=== PATIENT | female | born 1985 | race Caucasian/White ===

== ENCOUNTER 2021-06-11 15:54 | Inpatient (IN) | payer BC ==
[2021-06-11 17:30] LABS: Absolute Lymphocytes (CBC) 0.7 K/uL (0.7-4.9); Basophils % 0.4 % (0-1.3); Hematocrit 43.5 % (36.0-45.0); Lymphocytes % 10.1 % (15.3-44.8); MPV 8.1 fL (7.6-11.3); RBC Red Blood Cell Count 5.14 M/uL (3.86-4.86)
[2021-06-11 17:34] LABS: Protime INR 1.32
--- NOTE | 2021-06-11 17:45 | RAD REPORT ---
EXAM DESCRIPTION: RAD - Chest Single View - 06/11/2021 5:37 pm CLINICAL HISTORY: DYSPNEA COMPARISON: No comparisons FINDINGS: Lines: None. Lungs: Severe bilateral airspace disease. Pleural: No significant pleural effusions or pneumothorax. Cardiac: The heart size is within normal limits. Bones: No acute fractures. Other: IMPRESSION: Severe bilateral airspace disease concerning for multifocal pneumonia, particularly Covi d-19 .
[2021-06-11] MEDS ORDERED: NA CHLORIDE 0.9% 1,000 ML ONE (18:00)
[2021-06-11] MEDS ORDERED: METHYLPREDNISOLONE 125 MG INJ ONE (18:00)
[2021-06-11 18:06] LABS: ALT/SGPT 21 U/L (12-78); AST/SGOT 37 U/L (15-37); Albumin 2.8 g/dL (3.4-5.0); Alkaline Phosphatase 73 U/L (45-117); BUN Blood Urea Nitrogen 15 mg/dL (7-18); Bicarbonate 24 mmol/L (21-32); Bilirubin Direct 0.2 mg/dL (0-0.2); Bilirubin Total 0.6 mg/dL (0.2-1.0); Ferritin 607.6 ng/mL (8-388); Glucose Level 288 mg/dL (74-106); Lipase 170 U/L (73-393); Potassium 3.6 mmol/L (3.5-5.1); Protein, Total 7.5 g/dL (6.4-8.2); Sodium Level 139 mmol/L (136-145); Troponin (Emerg Dept Use Only) < 0.02 ng/mL (0.0-0.045)
[2021-06-11 18:38] LABS: Blood Morphology Comment NOT SEEN (NOT SEEN); Platelet Estimate ADEQ; White Blood Cell Scan OK (OK)
--- NOTE | 2021-06-11 19:09 | RAD REPORT ---
EXAM DESCRIPTION: CT - Chest For Pe Angio - 06/11/2021 6:52 pm CLINICAL HISTORY: SOB COMPARISON: No comparisons FINDINGS: Chest Wall: No suspicious thyroid nodules or pathologic lymphadenopathy. Lungs: Severe bilateral airspace disease. Pleura: No significant effusions or pneumothorax. Mediastinum/kay: No pathologic lymphadenopathy. Pulmonary arteries/Aorta: No filling defect identified. Limited evaluation of the subsegmental and se gmental pulmonary arteries. No aortic aneurysm. Heart: No significant pericardial effusion. Normal heart size. Upper abdomen: Hepatic steatosis Bones: No acute abnormality. All CT scans are performed using dose optimization technique as appropriate and may include automated exposure control or mA/KV adjustment according to patient size. IMPRESSION: Negative for pulmonary embolism. Limited by motion. Severe bilateral airspace disease co ncerning for Covid-19 pneumonia.
[2021-06-11 19:17] LABS: Urine Blood 2+ (Negative); Urine Glucose 2+ (Negative); Urine Protein 1+ (Negative); Urine Specific Gravity 1.015 (1.005-1.030); Urine pH 5.5 (5.0-7.0)
[2021-06-11] MEDS ORDERED: CEFTRIAXONE 1000 MG/VIAL ONE (19:17)
[2021-06-11] MEDS ORDERED: HYDRALAZINE HCL 20 MG/ML VIAL ONE (19:17)
[2021-06-11 19:36] LABS: Urine Specific Gravity/Preg 1.015 (1.005-1.030)
--- NOTE | 2021-06-11 19:48 | ER ---
Nurse's Notes [facility] Name: Rachael Couch Age: 35 yrs Sex: Female : 1985 Arrival Date: 06/11/2021 Time: 16:25 Bed 19 Private MD: Diagnosis: Pneumonia due to SARS-associated coronavirus;Hypoxemia Presentation: 06/11 16:30 Chief complaint: Patient states: increased SOB since 06/05/21, CP 10/10, positive covid tc5 06/04/21, other in home have recently had covid. went to doctor today, 02 sats decreased to the 70's with ambulation on 2 LPM NC, would recover to the 80's. EMS called to bring her to the er. Coronavirus screen: Vaccine status: Patient reports being unvaccinated. Client denies travel out of the [place] in the last 14 days. Client reports previous positive COVID test result. Date of collection: June 04, 2021. Ebola Screen: Patient negative for fever greater than or equal to 101.5 degrees Fahrenheit, and additional compatible Ebola Virus Disease symptoms Patient denies exposure to infectious person. Patient denies travel to an Ebola-affected area in the 21 days before illness onset. Initial Sepsis Screen: Does the patient meet any 2 criteria? RR > 20 per min. Does the patient have a suspected source of infection?. Risk Assessment: Do you want to hurt yourself or someone else? Patient reports no desire to harm self or others. Onset of symptoms was June 04, 2021 at 00:00. 16:30 Method Of Arrival: EMS: [facility] tc5 16:30 Acuity: SALVATORE 3 tc5 Triage Assessment: 16:41 General: Appears distressed, obese, Behavior is cooperative, anxious. Pain: Complains tc5 of pain in chest. Neuro: No deficits noted. Cardiovascular: Chest pain began 6 days ago with sob. Respiratory: Reports shortness of breath cough that is pain with cough covid positive 06/04/21, sob started 06/05/21 continues to worsen. the patient has moderate shortness of breath. GI: No deficits noted. : No deficits noted. Historical: - Allergies: 16:38 Aspirin; tc5 16:38 Sulfa (Sulfonamide Antibiotics); tc5 16:38 PENICILLINS; tc5 - Home Meds: 16:38 metformin 1,000 mg Oral tab 2 times per day [Active]; Invokana 100 mg oral tab 1 tab tc5 once daily [Active]; losartan 50 mg oral tab once daily [Active]; amlodipine 10 mg tab once daily [Active]; - PMHx: 16:38 Diabetes mellitus; Hypertensive disorder; Asthma; tc5 - Immunization history:: Adult Immunizations up to date, Client reports having NOT received the Covid vaccine. Last tetanus immunization: up to date. - Social history:: Patient/guardian denies using. Screenin:15 Fall Risk None identified. No fall in past 12 months (0 pts). No secondary diagnosis (0 dc2 pts). IV access (20 points). Ambulatory Aid- None/Bed Rest/Nurse Assist (0 pts). Gait- Normal/Bed Rest/Wheelchair (0 pts) Mental Status- Oriented to own ability (0 pts). Total Salas Fall Scale indicates No Risk (0-24 pts). 22:15 Abuse screen: Denies threats or abuse. Denies injuries from another. Nutritional dc2 screening: No deficits noted. On diabetic diet, Difficulty chewing/swallowing? No. Tuberculosis screening: No symptoms or risk factors identified. Never had TB. Possible symptoms: None Risk factors: None. Assessment: 16:44 General: Appears distressed, obese, Behavior is cooperative, anxious, pt is calming tc5 with reassurance and 02 sat is increasing.. Pain: Complains of pain in chest. Neuro: No deficits noted. Cardiovascular: Reports chest pain. Respiratory: Reports shortness of breath cough that is air hunger. GI: No deficits noted. : No deficits noted. 20:42 Reassessment: Lactic acid drawn and sent to lab on ice. dc2 21:42 Reassessment: Pt reports now having diarrhea. Waiting on hospitalist to make visit and dc2 will notify of this change. 23:26 Reassessment: Report given to receiving nurse on fourth floor. ea 23:35 Reassessment: Report called to receiving nurse, pt left ED via hospital bed with ea oxygen, per tech, pt tolerating well. Vital Signs: 16:30 BP 209 / 98; Pulse 92; Resp 30; Temp 98.6; Pulse Ox 94% 6 lpm ; Weight 131.54 kg; tc5 Height 5 ft. 9 in. (175.26 cm); Pain 10/10; 16:43 BP 201 / 99; Pulse 91; Resp 26; Temp 98.6; Pulse Ox 98% ; tc5 19:35 BP 183 / 98; Pulse 93; Resp 22; Temp 98.3; Pulse Ox 98% on 6 lpm NC; Pain 0/10; dc2 19:35 BP 175 / 88; Pulse 95; Resp 22; Pulse Ox 97% on 6 lpm NC; Pain 0/10; dc2 20:00 BP 188 / 89; Pulse 92; Resp 24; Pulse Ox 95% on 6 lpm NC; Pain 0/10; dc2 21:00 BP 189 / 94; Pulse 105; Resp 22; Pulse Ox 98% on 6 lpm NC; Pain 0/10; dc2 22:00 BP 162 / 82; Pulse 101; Resp 22; Pulse Ox 95% on 6 lpm NC; Pain 0/10; dc2 16:30 Body Mass Index 42.83 (131.54 kg, 175.26 cm) tc5 ED Course: 16:25 Patient arrived in ED. ap3 16:30 Yumiko Hinton, RN is Primary Nurse. tc5 16:37 Triage completed. tc5 16:45 Karel Hurst PA is PHCP. cp 16:45 James Pinedo MD is Attending Physician. cp 17:22 Inserted saline lock: 20 gauge in right antecubital area, using aseptic technique. dh4 Blood collected. 17:37 CXR XRAY In Process Unspecified. EDMS 18:52 CT Chest For PE Angio In Process Unspecified. EDMS 19:18 Report given to Kaye Burton. tc5 19:20 Patient has correct armband on for positive identification. Allergy band placed. Fall dc2 risk band placed. Bed in low position. Call light in reach. Side rails up X 1. ekg monitor on. Pulse ox on. NIBP on. Door closed. Lights dimmed. Pillow given. Verbal reassurance given. Assisted to bedside commode. 19:47 Bartolome Thomson is Hospitalizing Provider. cp 20:30 Awaiting bed assignment. Patient requests liquids. dc2 21:13 Safety Checks: The door is not opened, nor is patient placed in a hallway bed/chair. dc2 23:26 No provider procedures requiring assistance completed. Patient admitted, IV remains in ea place. Administered Medications: 17:45 Drug: SOLU-Medrol (methylPrednisoLONE) 125 mg Route: IVP; Site: right antecubital; tc5 17:46 Drug: NS 0.9% 1000 ml Route: IV; Rate: 1 bolus; Site: right antecubital; tc5 19:10 Drug: Rocephin (cefTRIAXone) 1 grams Route: IV; Rate: calculated rate; Site: right lh3 antecubital; 19:20 Drug: hydrALAZINE 10 mg Route: IVP; Site: right antecubital; lh3 22:19 Follow up: Response: Blood pressure is lowered dc2 19:44 Drug: NS 0.9% 1000 ml Route: IV; Rate: 1 bolus; Site: right antecubital; lh3 19:45 Follow up: IV Status: Completed infusion dc2 Outcome: 19:48 Decision to Hospitalize by Provider. cp 23:25 Admitted to Med/surg accompanied by tech, room 407, Report called to Receiving nurse ea on fourth floor 23:25 Condition: stable 23:25 Instructed on the need for admit, Demonstrated understanding of instructions. 23:34 Patient left the ED. ea Signatures: Dispatcher [employer] EDMS Karel Hurst PA PA cp Donna Muse RN Jenni Kruger ea RN RN [id number] Denys Aparicio [facility] Ledy Self RN RN lh3 Kaye Goznales, RN RN dc2 Yumiko Hinton RN RN tc5
--- NOTE | 2021-06-11 19:48 | EDPHYS ---
Physician Documentation [facility] Name: Rachael Couch Age: 35 yrs Sex: Female : 1985 Arrival Date: 06/11/2021 Time: 16:25 Bed 19 Private MD: ED Physician James Pinedo HPI: 06/11 16:45 This 35 yrs old Female presents to ER via EMS with complaints of Covid+ SOB. cp 16:45 The patient has shortness of breath at rest. Onset: The symptoms/episode began/occurred cp gradually, and became worse today. Duration: The symptoms are continuous, and are steadily getting worse. Associated signs and symptoms: Pertinent positives: chest pain, cough, Pertinent negatives: abdominal pain, diarrhea, fever, headache, vomiting, wheezing. 16:45 Patient reports testing positive for COVID-19 on 06-04-2021 with symptoms starting cp 06-05-2021. Patient reports she is not vaccinated against COVID-19. Historical: - Allergies: 16:38 Aspirin; tc5 16:38 Sulfa (Sulfonamide Antibiotics); tc5 16:38 PENICILLINS; tc5 - Home Meds: 16:38 metformin 1,000 mg Oral tab 2 times per day [Active]; Invokana 100 mg oral tab 1 tab tc5 once daily [Active]; losartan 50 mg oral tab once daily [Active]; amlodipine 10 mg tab once daily [Active]; - PMHx: 16:38 Diabetes mellitus; Hypertensive disorder; Asthma; tc5 - Immunization history:: Adult Immunizations up to date, Client reports having NOT received the Covid vaccine. Last tetanus immunization: up to date. - Social history:: Patient/guardian denies using. ROS: 16:50 Constitutional: Negative for fever, poor PO intake. cp 16:50 Eyes: Negative for injury, pain, redness, and discharge. cp 16:50 Cardiovascular: Positive for chest pain, Negative for edema. 16:50 Respiratory: Positive for cough, "sounds productive", shortness of breath, at rest. Negative for wheezing. 16:50 Abdomen/GI: Negative for abdominal pain, vomiting, diarrhea, constipation. 16:50 Skin: Negative for rash. 16:50 Neuro: Negative for altered mental status, headache, syncope, weakness. 16:50 All other systems are negative. Exam: 16:50 ECG was reviewed by the Attending Physician. cp 16:55 Constitutional: The patient appears alert, awake, non-diaphoretic, non-toxic, well cp developed, well nourished, obese, in obvious distress, mildly distressed. 16:55 Head/Face: Normocephalic, atraumatic. cp 16:55 Eyes: Periorbital structures: appear normal, Pupils: equal, round, and reactive to light and accomodation, Extraocular movements: intact throughout, Conjunctiva: normal, no exudate, no injection, Sclera: no appreciated abnormality, Lids and lashes: appear normal, bilaterally. 16:55 ENT: External ear(s): are unremarkable, Nose: is normal, Mouth: Lips: moist, Oral mucosa: pink and intact, moist, Posterior pharynx: Airway: no evidence of obstruction, patent, Tonsils: are normal in appearance, swelling, is not appreciated, erythema, is not appreciated, exudate, is not appreciated. 16:55 Neck: ROM/movement: is normal, is supple, no meningismus, no nuchal rigidity. 16:55 Chest/axilla: Inspection: normal. 16:55 Cardiovascular: Rate: normal, Rhythm: regular, Edema: is not appreciated, JVD: is not appreciated. 16:55 Respiratory: mild respiratory distress is noted, Respirations: labored breathing, that is moderate, shallow respirations, that is moderate, Breath sounds: bronchial sounds, that are moderate, are heard diffusely, stridor, is not appreciated, wheezing: is not appreciated. 16:55 Abdomen/GI: Inspection: obese Palpation: abdomen is soft and non-tender, in all quadrants. 16:55 Skin: cellulitis, is not appreciated, no rash present. 16:55 Neuro: Orientation: to person, place \\T\\ time. Mentation: is normal, Motor: moves all fours, strength is normal. Vital Signs: 16:30 BP 209 / 98; Pulse 92; Resp 30; Temp 98.6; Pulse Ox 94% 6 lpm ; Weight 131.54 kg; tc5 Height 5 ft. 9 in. (175.26 cm); Pain 10/10; 16:43 BP 201 / 99; Pulse 91; Resp 26; Temp 98.6; Pulse Ox 98% ; tc5 19:35 BP 183 / 98; Pulse 93; Resp 22; Temp 98.3; Pulse Ox 98% on 6 lpm NC; Pain 0/10; dc2 19:35 BP 175 / 88; Pulse 95; Resp 22; Pulse Ox 97% on 6 lpm NC; Pain 0/10; dc2 20:00 BP 188 / 89; Pulse 92; Resp 24; Pulse Ox 95% on 6 lpm NC; Pain 0/10; dc2 21:00 BP 189 / 94; Pulse 105; Resp 22; Pulse Ox 98% on 6 lpm NC; Pain 0/10; dc2 22:00 BP 162 / 82; Pulse 101; Resp 22; Pulse Ox 95% on 6 lpm NC; Pain 0/10; dc2 16:30 Body Mass Index 42.83 (131.54 kg, 175.26 cm) tc5 MDM: 16:49 Patient medically screened. 17:00 Differential diagnosis: Bronchitis CHF exacerbation, pneumonia Pneumothorax pulmonary cp edema, Pulmonary Embolism Sepsis. 19:30 Physician consultation: Taco RAWLS was contacted at 19:30, regarding admission, to the telemetry unit. patient's condition. 19:45 Data reviewed: vital signs, nurses notes, lab test result(s), EKG, radiologic studies, cp CT scan, plain films. 19:45 Test interpretation: by ED physician or midlevel provider: ECG, plain radiologic cp studies. Response to treatment: the patient's symptoms have markedly improved after treatment, and as a result, I will admit patient. 06/11 16:30 Order name: BMP 06/11 16:30 Order name: Blood Culture Adult (2) 06/11 16:30 Order name: C-Reactive Protein 06/11 16:30 Order name: CBC with Diff; Complete Time: 18:48 06/11 18:19 Interpretation: Normal except: RBC 5.14; BILL% 86.4; LYM% 10.1; MN% 2.9. 06/11 16:30 Order name: D-Dimer; Complete Time: 18:19 06/11 18:19 Interpretation: Abnormal: D-DIMER 3176. 06/11 16:30 Order name: Ferritin; Complete Time: 18:19 06/11 16:30 Order name: Flu; Complete Time: 18:19 06/11 16:30 Order name: LFT's; Complete Time: 18:19 06/11 16:30 Order name: Lactate; Complete Time: 18:00 06/11 18:00 Interpretation: Abnormal: LAC 2.2. 06/11 16:30 Order name: Lipase; Complete Time: 18:19 06/11 16:30 Order name: PT-INR; Complete Time: 18:19 06/11 16:30 Order name: Procalcitonin; Complete Time: 18:48 06/11 18:49 Interpretation: Abnormal: Procalcitonin 0.08. 06/11 16:30 Order name: Ptt, Activated; Complete Time: 18:19 06/11 16:30 Order name: Troponin (emerg Dept Use Only); Complete Time: 18:19 06/11 18:20 Interpretation: Within normal limits: TROPED < 0.02. 06/11 16:30 Order name: CXR XRAY; Complete Time: 18:00 06/11 18:01 Interpretation: Report review. 06/11 16:31 Order name: Basic Metabolic Panel; Complete Time: 18:19 [facility] 06/11 18:19 Interpretation: Normal except: GLUC 288. 06/11 16:31 Order name: Blood Culture [facility] 06/11 16:31 Order name: C-Reactive Protein; Complete Time: 18:19 [facility] 06/11 18:20 Order name: CT Chest For PE Angio; Complete Time: 19:17 06/11 18:38 Order name: CBC Smear Scan; Complete Time: 18:48 [facility] 06/11 19:17 Order name: Urine Dipstick-Ancillary; Complete Time: 19:44 [facility] 06/11 19:19 Order name: Urine --Ancillary (enter results); Complete Time: 19:44 [facility] 06/11 21:11 Order name: Lactate Sepsis 2 HR Follow-up [facility] 06/11 16:30 Order name: EKG; Complete Time: 16:31 06/11 16:30 Order name: Cardiac monitoring; Complete Time: 17:23 06/11 16:30 Order name: Droplet/Contact Precautions; Complete Time: 17:23 06/11 16:30 Order name: EKG - Nurse/Tech; Complete Time: 17:23 06/11 16:30 Order name: IV Start; Complete Time: 17:23 06/11 16:30 Order name: Labs collected and sent; Complete Time: 17:23 kb 06/11 16:30 Order name: O2 Per Protocol; Complete Time: 17:22 kb 06/11 16:30 Order name: O2 Sat Monitoring; Complete Time: 17:22 kb 06/11 16:57 Order name: Urine Dipstick-Ancillary (obtain specimen) 06/11 16:57 Order name: Urine Test (obtain specimen) 06/11 19:57 Order name: CONS Physician Consult EDUT EC:50 Rate is 91 beats/min. Rhythm is regular. [place] interval is normal. QRS interval is normal. cp QT interval is normal. T waves are Inverted in leads III, aVR. Interpreted by me. Reviewed by me. Administered Medications: 17:45 Drug: SOLU-Medrol (methylPrednisoLONE) 125 mg Route: IVP; Site: right antecubital; tc5 17:46 Drug: NS 0.9% 1000 ml Route: IV; Rate: 1 bolus; Site: right antecubital; tc5 19:10 Drug: Rocephin (cefTRIAXone) 1 grams Route: IV; Rate: calculated rate; Site: right lh3 antecubital; 19:20 Drug: hydrALAZINE 10 mg Route: IVP; Site: right antecubital; lh3 22:19 Follow up: Response: Blood pressure is lowered dc2 19:44 Drug: NS 0.9% 1000 ml Route: IV; Rate: 1 bolus; Site: right antecubital; lh3 19:45 Follow up: IV Status: Completed infusion dc2 Disposition: 06/12 17:02 Co-signature as Attending Physician, James Pinedo MD I agree with the assessment and kdr plan of care. Disposition Summary: 06/11/21 19:48 Hospitalization Ordered Hospitalization Status: Inpatient Admission cp Provider: Bartolome Thomson cp Location: Telemetry/MedSurg (Inpatient) cp Condition: Fair cp Problem: new cp Symptoms: have improved cp Bed/Room Type: Standard cp Room Assignment: 407(06/11/21 22:51) mw Diagnosis - Pneumonia due to SARS-associated coronavirus cp - Hypoxemia cp Forms: - Medication Reconciliation Form cp - SBAR form cp Signatures: Dispatcher [employer] EDJael Mitchell FNP-C FNP-Ckb Webb, Martha, RN RN James Parisi MD MD kdr Karel Hurst PA PA cp Hardee, Latisha, RN RN 3 Yumiko Hinton RN RN tc5 Kaye Gonzales RN dc2 Corrections: (The following items were deleted from the chart) 06/11 22:51 19:48 samira boland
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
[2021-06-11] MEDS ORDERED: MELATONIN 5 MG TABLET PO PRN (23:57)
[2021-06-11] MEDS: FAMOTIDINE 20 MG TAB PO SCH (23:57)
[2021-06-11] MEDS: INSULIN -REGULAR HUMAN 50 UNIT/0.5 ML ML SQ SCH (23:57)
[2021-06-11] MEDS ORDERED: IVERMECTIN 3 MG TABLET PO SCH (23:57)
[2021-06-11] MEDS ORDERED: ONDANSETRON 4 MG/2 ML VIAL IV PRN (23:57)
[2021-06-11] MEDS ORDERED: BENZONATATE 100 MG CAP PO PRN (23:57)
[2021-06-12] MEDS: METHYLPREDNISOLONE 125 MG INJ IV SCH ×3 (00:42→20:21)
[2021-06-12] MEDS: ASCORBIC ACID 500 MG TABLET PO SCH ×5 (00:43→20:21)
[2021-06-12 01:16] VITALS: BMI 42.8
[2021-06-12] MEDS: HYDRALAZINE HCL 20 MG/ML VIAL IV PRN ×4 (04:42→17:51)
[2021-06-12 06:38] LABS: Absolute Lymphocytes (CBC) 0.6 K/uL (0.7-4.9); Basophils % 0.2 % (0-1.3); Hematocrit 41.3 % (36.0-45.0); Lymphocytes % 12.9 % (15.3-44.8); MPV 7.9 fL (7.6-11.3); RBC Red Blood Cell Count 4.91 M/uL (3.86-4.86)
[2021-06-12 08:10] LABS: ALT/SGPT 21 U/L (12-78); AST/SGOT 32 U/L (15-37); Albumin 2.6 g/dL (3.4-5.0); Alkaline Phosphatase 72 U/L (45-117); BUN Blood Urea Nitrogen 14 mg/dL (7-18); Bicarbonate 17 mmol/L (21-32); Bilirubin Total 0.5 mg/dL (0.2-1.0); Ferritin 597.6 ng/mL (8-388); Glucose Level 371 mg/dL (74-106); HDL Cholesterol 44 mg/dL (40-60); LDL Cholesterol, Calculated 65 (<130); Magnesium 2.2 mg/dL (1.8-2.4); Phosphorus 2.7 mg/dL (2.5-4.9); Potassium 3.9 mmol/L (3.5-5.1); Protein, Total 7.1 g/dL (6.4-8.2); Sodium Level 139 mmol/L (136-145); Thyroid Stimulating Hormone 0.544 uIU/mL (0.360-3.740)
[2021-06-12] MEDS: VITAMIN D 1000 UNIT TAB PO SCH (08:34)
[2021-06-12] MEDS: FAMOTIDINE 20 MG TAB PO SCH ×2 (08:34→20:20)
[2021-06-12] MEDS: THIAMINE HCL 100 MG TABLET PO SCH (08:34)
[2021-06-12] MEDS: LOSARTAN POTASSIUM 50 MG TABLET PO SCH (08:35)
[2021-06-12] MEDS: ZINC SULFATE 220 MG CAP PO SCH (08:35)
[2021-06-12] MEDS: INSULIN -REGULAR HUMAN 50 UNIT/0.5 ML ML SQ SCH ×4 (08:48→20:22)
[2021-06-12] MEDS ORDERED: ASPIRIN EC 81 MG TAB PO SCH (09:00)
--- NOTE | 2021-06-12 11:30 | P.CNS ---
Date of Consult: 06/12/21 Reason for Consult: Coronavirus pneumonia Primary Care Provider: Chris Chief Complaint: covid pneumonia History of Present Illness: Patient is 35 years of age with a history of metabolic syndrome and a history of asthma has been sick for the past week admitted with coronavirus pneumonia all her family members tested positive for coronavirus also complaining of nausea vomiting diarrhea No problems with her asthma Allergies aspirin Allergy (Severe, Verified 06/11/21 23:57) Anaphylaxis Penicillins Allergy (Severe, Verified 06/11/21 23:57) Hives/Rash Sulfa (Sulfonamide Antibiotics) Allergy (Verified 06/11/21 23:57) Hives/Rash Home Medications: Amlodipine [Norvasc] 10 mg PO DAILY 06/12/21 Losartan Potassium 50 mg PO DAILY 06/12/21 Metformin HCl [Glucophage] 1,000 mg PO BIDWM 06/12/21 - Past Medical/Surgical History -: HTN -: DM -: asthma -: alla -: tonsillectomy - Family History Mother Medical History: Hypertension, Diabetes - Social History Alcohol use: No CD- Drugs: No Caffeine use: Yes Place of Residence: Home Review of Systems General: Weakness Respiratory: Cough, Shortness of Breath Gastrointestinal: Nausea, Diarrhea Physical Examination Temp Pulse Resp BP Pulse Ox 98.6 F 99 H 26 H 175/85 H 94 06/12/21 08:00 06/12/21 08:00 06/12/21 08:00 06/12/21 08:00 06/12/21 08:00 General: Alert, Oriented x3, Mild distress Laboratory Data (last 24 hrs) 06/11/21 17:10: PT 15.2 H, INR 1.32, APTT 23.3 L 06/11/21 17:10: WBC 7.10, Hgb 14.2, Hct 43.5, Plt Count 241 06/11/21 17:10: Sodium 139, Potassium 3.6, BUN 15, Creatinine 0.70, Glucose 288 H, Total Bilirubin 0.6, AST 37, ALT 21, Alkaline Phosphatase 73, Lipase 170 - Problems (1) Pneumonia due to COVID-19 virus Current Visit: Yes Status: Acute Plan: Patient is 35 years of age admitted with coronavirus pneumonia labs reviewed labs reviewed CT scan shows severe coronavirus pneumonia currently patient is on 5 L patient may qualify for Barcitinib
[2021-06-12] MEDS: ACETAMINOPHEN 500 MG TAB PO PRN (14:33)
[2021-06-12] MEDS ORDERED: LOSARTAN POTASSIUM 50 MG TABLET PO SCH (15:55)
[2021-06-12] MEDS ORDERED: D50W 25 GM/50 ML SYRINGE IV PRN (15:55)
[2021-06-12] MEDS ORDERED: AMLODIPINE 10 MG TAB PO SCH (15:55)
[2021-06-12] MEDS ORDERED: GLUCAGON 1 MG/VIAL IM PRN (15:55)
--- NOTE | 2021-06-12 15:56 | P.PN ---
Subjective Date of Service: 06/12/21 Primary Care Provider: Chris Chief Complaint: covid pneumonia Patient currently on 5 L oxygen by nasal cannula. Physical Examination - Vital Signs Temperature: 98.4 F Blood Pressure: 162/83 Pulse: 105 Respirations: 32 Pulse Ox (%): 84 - Physical Exam General: Alert, In no apparent distress HEENT: Mucous membr. moist/pink Neck: JVD not distended Respiratory: Other (Nonlabored breathing) Cardiovascular: No edema, Regular rate/rhythm Gastrointestinal: Soft and benign, Non-distended Musculoskeletal: No swelling Neurological: Normal strength at 5/5 x4 extr - Studies Laboratory Data (last 24 hrs) 06/11/21 17:10: PT 15.2 H, INR 1.32, APTT 23.3 L 06/11/21 17:10: WBC 7.10, Hgb 14.2, Hct 43.5, Plt Count 241 06/11/21 17:10: Sodium 139, Potassium 3.6, BUN 15, Creatinine 0.70, Glucose 288 H, Total Bilirubin 0.6, AST 37, ALT 21, Alkaline Phosphatase 73, Lipase 170 Microbiology Data (last 24 hrs): 06/11/21 17:10 Nasopharnyx Influenza Type A Antigen Screen - Final 06/11/21 17:10 Nasopharnyx Influenza Type B Antigen Screen - Final Assessment And Plan - Current Problems (Diagnosis) (1) Acute respiratory failure with hypoxia Current Visit: Yes Status: Acute (2) Pneumonia due to COVID-19 virus Current Visit: Yes Status: Acute (3) HTN (hypertension) Current Visit: Yes Status: Chronic Qualifiers: Hypertension type: primary hypertension Qualified Code(s): I10 - Essential (primary) hypertension (4) T2DM (type 2 diabetes mellitus) Current Visit: Yes Status: Chronic Qualifiers: Diabetes mellitus skilled nursing insulin use: without skilled nursing use Diabetes mellitus complication status: without complication Qualified Code(s): E11.9 - Type 2 diabetes mellitus without complications - Plan Continue IV steroid, vitamin-D and zinc supplementation. Pulmonary input appreciated. Monitor inflammatory markers. Immune modulators per pulmonary. Insulin sliding scale for glucose management. Start Lantus insulin for hyperglycemia. Blood pressure control-resume home dose losartan and amlodipine. Hydralazine IV p.r.n. Monitor CBC and blood chemistry.
[2021-06-12] MEDS ORDERED: INSULIN GLARGINE 100 UNITS/ML SQ SCH (17:00)
[2021-06-12] MEDS: RIVAROXABAN 10 MG TABLET PO SCH (17:51)
[2021-06-12] MEDS: AMLODIPINE 10 MG TAB PO SCH (20:21)
[2021-06-13] MEDS: HYDRALAZINE HCL 20 MG/ML VIAL IV PRN ×2 (00:15→17:58)
[2021-06-13 04:14] LABS: Absolute Lymphocytes (CBC) 0.7 K/uL (0.7-4.9); Basophils % 0.1 % (0-1.3); Hematocrit 42.1 % (36.0-45.0); Lymphocytes % 7.5 % (15.3-44.8); MPV 8.3 fL (7.6-11.3); RBC Red Blood Cell Count 5.03 M/uL (3.86-4.86)
[2021-06-13 04:52] LABS: BUN Blood Urea Nitrogen 18 mg/dL (7-18); Bicarbonate 18 mmol/L (21-32); Glucose Level 333 mg/dL (74-106); Potassium 3.4 mmol/L (3.5-5.1); Sodium Level 140 mmol/L (136-145)
[2021-06-13] MEDS: ASCORBIC ACID 500 MG TABLET PO SCH ×4 (08:21→20:02)
[2021-06-13] MEDS: METHYLPREDNISOLONE 125 MG INJ IV SCH ×2 (08:21→20:01)
[2021-06-13] MEDS: ZINC SULFATE 220 MG CAP PO SCH (08:21)
[2021-06-13] MEDS: THIAMINE HCL 100 MG TABLET PO SCH (08:21)
[2021-06-13] MEDS: VITAMIN D 1000 UNIT TAB PO SCH (08:21)
[2021-06-13] MEDS: LOSARTAN POTASSIUM 50 MG TABLET PO SCH (08:21)
[2021-06-13] MEDS: FAMOTIDINE 20 MG TAB PO SCH ×2 (08:21→20:02)
[2021-06-13] MEDS: INSULIN -REGULAR HUMAN 50 UNIT/0.5 ML ML SQ SCH ×4 (08:24→20:15)
[2021-06-13] MEDS ORDERED: POTASSIUM CL SA 10 MEQ TAB PO ONE (13:28)
--- NOTE | 2021-06-13 14:44 | P.PN ---
Subjective Date of Service: 06/13/21 Primary Care Provider: Chris Chief Complaint: covid pneumonia Patient currently on 10 L oxygen by nasal cannula. Good oral intake. Physical Examination - Vital Signs Temperature: 97.7 F Blood Pressure: 168/75 Pulse: 93 Respirations: 18 Pulse Ox (%): 92 - Physical Exam General: Alert, In no apparent distress, Oriented x3 Neck: JVD not distended Respiratory: Other (Nonlabored breathing) Cardiovascular: No edema, Regular rate/rhythm, Normal S1 S2 Gastrointestinal: Soft and benign, Non-distended Musculoskeletal: No swelling Integumentary: No rashes, No erythema Neurological: Normal strength at 5/5 x4 extr Assessment And Plan - Current Problems (Diagnosis) (1) Acute respiratory failure with hypoxia Current Visit: Yes Status: Acute (2) Pneumonia due to COVID-19 virus Current Visit: Yes Status: Acute (3) HTN (hypertension) Current Visit: Yes Status: Chronic Qualifiers: Hypertension type: primary hypertension Qualified Code(s): I10 - Essential (primary) hypertension (4) T2DM (type 2 diabetes mellitus) Current Visit: Yes Status: Chronic Qualifiers: Diabetes mellitus bed bug exterminator insulin use: without bed bug exterminator use Diabetes mellitus complication status: without complication Qualified Code(s): E11.9 - Type 2 diabetes mellitus without complications (5) Morbid obesity Current Visit: Yes Status: Acute - Plan Continue IV steroid, vitamin-D and zinc supplementation. Pulmonary input appreciated. Monitor inflammatory markers. Immune modulators per pulmonary. Insulin sliding scale for glucose management. Titate Lantus insulin for hyperglycemia. Lantus insulin increased to 20 units b.i.d. Blood pressure control-continue losartan and amlodipine. Hydralazine IV p.r.n. Monitor CBC and blood chemistry.
[2021-06-13] MEDS: INSULIN GLARGINE 100 UNITS/ML SQ SCH (16:46)
[2021-06-13] MEDS: RIVAROXABAN 10 MG TABLET PO SCH (16:49)
[2021-06-13] MEDS: AMLODIPINE 10 MG TAB PO SCH (20:02)
[2021-06-13] MEDS: ACETAMINOPHEN 500 MG TAB PO PRN (20:47)
[2021-06-14] MEDS: HYDRALAZINE HCL 20 MG/ML VIAL IV PRN ×4 (01:50→23:52)
[2021-06-14 04:22] LABS: Absolute Lymphocytes (CBC) 0.6 K/uL (0.7-4.9); Basophils % 0.4 % (0-1.3); Hematocrit 41.5 % (36.0-45.0); Lymphocytes % 6.6 % (15.3-44.8); MPV 8.2 fL (7.6-11.3)
[2021-06-14 04:38] LABS: BUN Blood Urea Nitrogen 22 mg/dL (7-18); Bicarbonate 21 mmol/L (21-32); Glucose Level 335 mg/dL (74-106); Potassium 3.5 mmol/L (3.5-5.1); Sodium Level 139 mmol/L (136-145)
[2021-06-14] MEDS: INSULIN GLARGINE 100 UNITS/ML SQ SCH ×2 (05:00→20:27)
[2021-06-14] MEDS: ASCORBIC ACID 500 MG TABLET PO SCH ×4 (08:05→20:28)
[2021-06-14] MEDS: METHYLPREDNISOLONE 125 MG INJ IV SCH ×2 (08:05→20:28)
[2021-06-14] MEDS: VITAMIN D 1000 UNIT TAB PO SCH (08:05)
[2021-06-14] MEDS: LOSARTAN POTASSIUM 50 MG TABLET PO SCH (08:05)
[2021-06-14] MEDS: AMLODIPINE 10 MG TAB PO SCH (08:05)
[2021-06-14] MEDS: FAMOTIDINE 20 MG TAB PO SCH ×2 (08:05→20:28)
[2021-06-14] MEDS: THIAMINE HCL 100 MG TABLET PO SCH (08:05)
[2021-06-14] MEDS: ZINC SULFATE 220 MG CAP PO SCH (08:05)
[2021-06-14] MEDS: INSULIN -REGULAR HUMAN 50 UNIT/0.5 ML ML SQ SCH ×4 (08:20→20:27)
[2021-06-14] MEDS ORDERED: POTASSIUM 25 MEQ EFFERV TAB PO ONE (09:26)
--- NOTE | 2021-06-14 12:23 | P.PN ---
Subjective Date of Service: 06/14/21 Primary Care Provider: Chris Chief Complaint: covid pneumonia Subjective: Improving (Patient is feeling better still hypoxic on 10 L of nasal cannula oxygen still has a slight cough) Review of Systems General: Weakness Respiratory: Cough, Shortness of Breath Physical Examination - Vital Signs Temperature: 97.3 F Blood Pressure: 162/74 Pulse: 92 Respirations: 23 Pulse Ox (%): 92 - Physical Exam General: Alert, Oriented x3 Assessment & Plan - Problems (Diagnosis) (1) Pneumonia due to COVID-19 virus Current Visit: Yes Status: Acute Plan: Respiratory failure secondary to coronavirus she will not qualify for Barcitinib currently now on high flow oxygen oxygen requirements have worsened blood pressure elevated low-dose Lasix
--- NOTE | 2021-06-14 15:28 | P.PN ---
Subjective Date of Service: 06/14/21 Primary Care Provider: Chris Chief Complaint: covid pneumonia Patient currently on 10 L oxygen by nasal cannula. Physical Examination - Vital Signs Temperature: 97.3 F Blood Pressure: 162/74 Pulse: 92 Respirations: 23 Pulse Ox (%): 92 - Physical Exam General: Alert, In no apparent distress HEENT: Mucous membr. moist/pink Neck: JVD not distended Respiratory: Other (Nonlabored breathing) Cardiovascular: Regular rate/rhythm, Normal S1 S2 Gastrointestinal: Soft and benign, Non-distended Musculoskeletal: No swelling Integumentary: No rashes Neurological: Normal strength at 5/5 x4 extr Assessment And Plan - Current Problems (Diagnosis) (1) Acute respiratory failure with hypoxia Current Visit: Yes Status: Acute (2) Pneumonia due to COVID-19 virus Current Visit: Yes Status: Acute (3) HTN (hypertension) Current Visit: Yes Status: Chronic Qualifiers: Hypertension type: primary hypertension Qualified Code(s): I10 - Essential (primary) hypertension (4) T2DM (type 2 diabetes mellitus) Current Visit: Yes Status: Chronic Qualifiers: Diabetes mellitus termite inspector insulin use: without termite inspector use Diabetes mellitus complication status: without complication Qualified Code(s): E11.9 - Type 2 diabetes mellitus without complications (5) Morbid obesity Current Visit: Yes Status: Acute - Plan Continue IV steroid, vitamin-D and zinc supplementation. Pulmonary input appreciated. Monitor inflammatory markers. Immune modulators per pulmonary. Insulin sliding scale for glucose management. Titate Lantus insulin for hyperglycemia. Titrate Lantus insulin. Blood pressure control-continue losartan and amlodipine. Hydralazine IV p.r.n. Monitor CBC and blood chemistry.
[2021-06-14] MEDS ORDERED: INSULIN GLARGINE 100 UNITS/ML SQ SCH (16:00)
[2021-06-14] MEDS: RIVAROXABAN 10 MG TABLET PO SCH (16:58)
[2021-06-15] MEDS: HYDRALAZINE HCL 20 MG/ML VIAL IV PRN (03:35)
[2021-06-15 04:03] LABS: Absolute Lymphocytes (CBC) 0.5 K/uL (0.7-4.9); Basophils % 0.4 % (0-1.3); Hematocrit 41.6 % (36.0-45.0); Lymphocytes % 6.4 % (15.3-44.8); MPV 8.4 fL (7.6-11.3); RBC Red Blood Cell Count 5.03 M/uL (3.86-4.86)
[2021-06-15 04:34] LABS: BUN Blood Urea Nitrogen 23 mg/dL (7-18); Bicarbonate 24 mmol/L (21-32); Ferritin 494.9 ng/mL (8-388); Glucose Level 398 mg/dL (74-106); Potassium 3.9 mmol/L (3.5-5.1); Sodium Level 138 mmol/L (136-145)
[2021-06-15 04:49] LABS: Blood Morphology Comment NOT SEEN (NOT SEEN); Platelet Estimate ADEQ
--- NOTE | 2021-06-15 06:21 | P.PN ---
Subjective Date of Service: 06/15/21 Primary Care Provider: Chris Chief Complaint: covid pneumonia Subjective: Improving (Patient feels slightly better today, oxygen weaning down. Remains hyperglycemic. Passing flatus, no BM in several days) Review of Systems 10-point ROS is otherwise unremarkable Physical Examination - Vital Signs Temperature: 97 F Blood Pressure: 192/95 Pulse: 93 Respirations: 18 Pulse Ox (%): 88 Assessment & Plan Physician Review Additional Text: Physical exam GEN: Alert, oriented, NAD HEENT: Normal conjunctiva, sclera anicteric CV: Regular rate and rhythm, no edema Pulm: Mild labored respirations on 10 l nasal cannula ABD: Soft, nontender, nondistended Integumentary: No rashes Neuro: Normal speech, normal affect Problem list Acute hypoxemic respiratory failure secondary to COVID-19 pneumonia Hypertension Type 2 diabetes mellitus, insulin-dependent Morbid obesity Continue IV steroid, vitamin-D and zinc supplementation. Pulmonary input appreciated. Immune modulators per pulmonary. Insulin sliding scale for glucose management. Titate Lantus insulin for hyperglycemia. Blood pressure control-continue losartan and amlodipine. Hydralazine IV p.r.n. Monitor electrolytes Improving s/p Regeneron prior to hospitalization Start stool softener 06/07 Dispo: anticipate dc home with O2 in ~4 days Time Spent Managing Pts Care (In Minutes): 35
--- NOTE | 2021-06-15 06:57 | RAD REPORT ---
EXAM DESCRIPTION: RAD - Chest Single View - 06/15/2021 5:59 am CLINICAL HISTORY: Pneumonia COMPARISON: June 11 TECHNIQUE: AP portable chest image was obtained 06/15/2021 5:59 am . FINDINGS: Extensive bilateral airspace infiltrates are present not significantly different from comp arison when adjusting for differences in inspiration. Heart and vasculature are normal. No measurable pleural effusion and no pneumothorax. No acute bony abnormality seen. No acute aortic findings suspe cted. IMPRESSION: Extensive bilateral pneumonia not substantially different from June 11.
[2021-06-15] MEDS: VITAMIN D 1000 UNIT TAB PO SCH (07:39)
[2021-06-15] MEDS: FAMOTIDINE 20 MG TAB PO SCH ×2 (07:40→20:02)
[2021-06-15] MEDS: ZINC SULFATE 220 MG CAP PO SCH (07:40)
[2021-06-15] MEDS: ASCORBIC ACID 500 MG TABLET PO SCH ×4 (07:40→20:01)
[2021-06-15] MEDS: THIAMINE HCL 100 MG TABLET PO SCH (07:40)
[2021-06-15] MEDS: METHYLPREDNISOLONE 125 MG INJ IV SCH ×2 (07:41→20:00)
[2021-06-15] MEDS: INSULIN GLARGINE 100 UNITS/ML SQ SCH ×3 (07:41→19:46)
[2021-06-15] MEDS: INSULIN -REGULAR HUMAN 50 UNIT/0.5 ML ML SQ SCH ×4 (07:44→20:03)
[2021-06-15] MEDS: FUROSEMIDE 20 MG TABLET PO SCH ×2 (07:46→07:53)
[2021-06-15] MEDS: LOSARTAN POTASSIUM 50 MG TABLET PO SCH (07:53)
[2021-06-15] MEDS: DOCUSATE NA 100 MG CAP PO SCH ×2 (11:30→20:03)
[2021-06-15] MEDS: RIVAROXABAN 20 MG TABLET PO SCH (16:28)
[2021-06-15] MEDS ORDERED: INSULIN -REGULAR HUMAN 50 UNIT/0.5 ML ML IV ONE ×3 (17:30→23:53)
[2021-06-15] MEDS ORDERED: INSULIN GLARGINE 100 UNITS/ML SQ ONE (18:00)
[2021-06-15] MEDS ORDERED: D50W 25 GM/50 ML SYRINGE IV PRN ×3 (19:44→23:57)
[2021-06-15] MEDS ORDERED: GLUCAGON 1 MG/VIAL IM PRN ×3 (19:44→23:57)
[2021-06-15] MEDS: AMLODIPINE 10 MG TAB PO SCH (20:00)
[2021-06-16] MEDS: HYDRALAZINE HCL 20 MG/ML VIAL IV PRN (00:05)
[2021-06-16 04:20] LABS: Absolute Lymphocytes (CBC) 0.5 K/uL (0.7-4.9); Basophils % 0.2 % (0-1.3); Hematocrit 40.3 % (36.0-45.0); Lymphocytes % 6.8 % (15.3-44.8); MPV 8.3 fL (7.6-11.3); RBC Red Blood Cell Count 4.85 M/uL (3.86-4.86)
[2021-06-16 04:40] LABS: ALT/SGPT 22 U/L (12-78); AST/SGOT 16 U/L (15-37); Albumin 2.5 g/dL (3.4-5.0); Alkaline Phosphatase 93 U/L (45-117); BUN Blood Urea Nitrogen 20 mg/dL (7-18); Bicarbonate 27 mmol/L (21-32); Bilirubin Total 0.5 mg/dL (0.2-1.0); C-Reactive Protein 7.05 mg/L (<3.00); Ferritin 441.8 ng/mL (8-388); Glucose Level 373 mg/dL (74-106); Magnesium 2.1 mg/dL (1.8-2.4); Potassium 3.6 mmol/L (3.5-5.1); Protein, Total 5.8 g/dL (6.4-8.2); Sodium Level 138 mmol/L (136-145)
--- NOTE | 2021-06-16 06:28 | P.PN ---
Subjective Date of Service: 06/16/21 Primary Care Provider: Chris Chief Complaint: covid pneumonia Subjective: Improving (feeling better, down to 9L NC. no new complaiints, tolerating diet, urinating without issue, +flatus, no BM but feels may need to go today) Review of Systems 10-point ROS is otherwise unremarkable Physical Examination - Vital Signs Temperature: 97.9 F Blood Pressure: 139/82 Pulse: 91 Respirations: 18 Pulse Ox (%): 95 Assessment & Plan Physician Review Additional Text: Physical exam GEN: Alert, oriented, NAD HEENT: Normal conjunctiva, sclera anicteric CV: Regular rate and rhythm, no edema Pulm: Mild labored respirations on 9L nasal cannula ABD: Soft, nontender, nondistended Neuro: Normal speech, normal affect Problem list Acute hypoxemic respiratory failure secondary to COVID-19 pneumonia Hypertension Type 2 diabetes mellitus, insulin-dependent Morbid obesity Continue IV steroid, vitamin-D and zinc supplementation. Pulmonary input appreciated. Immune modulators per pulmonary. decreased steroids 06/16 Insulin sliding scale for glucose management. Titate Lantus insulin for hyperglycemia. should improve with decrease in st eroids today Blood pressure control-continue losartan and amlodipine. Hydralazine IV p.r.n. Monitor electrolytes Improving s/p Regeneron prior to hospitalization Start stool softener 06/15 Dispo: anticipate dc home with O2 in ~2-3 days Time Spent Managing Pts Care (In Minutes): 35
[2021-06-16] MEDS ORDERED: POTASSIUM 25 MEQ EFFERV TAB PO ONE (07:29)
[2021-06-16] MEDS: FAMOTIDINE 20 MG TAB PO SCH ×2 (08:27→19:59)
[2021-06-16] MEDS: ASCORBIC ACID 500 MG TABLET PO SCH ×4 (08:27→19:59)
[2021-06-16] MEDS: FUROSEMIDE 20 MG TABLET PO SCH (08:27)
[2021-06-16] MEDS: VITAMIN D 1000 UNIT TAB PO SCH (08:27)
[2021-06-16] MEDS: DOCUSATE NA 100 MG CAP PO SCH ×2 (08:27→19:59)
[2021-06-16] MEDS: ZINC SULFATE 220 MG CAP PO SCH (08:27)
[2021-06-16] MEDS: LOSARTAN POTASSIUM 50 MG TABLET PO SCH (08:27)
[2021-06-16] MEDS: THIAMINE HCL 100 MG TABLET PO SCH (08:27)
[2021-06-16] MEDS: INSULIN -REGULAR HUMAN 50 UNIT/0.5 ML ML SQ SCH ×4 (08:29→20:09)
[2021-06-16] MEDS: INSULIN GLARGINE 100 UNITS/ML SQ SCH ×2 (08:40→17:21)
[2021-06-16] MEDS: METHYLPREDNISOLONE 40 MG INJ IV SCH ×2 (08:50→19:59)
[2021-06-16] MEDS ORDERED: KCL 20 MEQ/100 mL IVPB 20 MEQ/100 ML BAG IV SCH (09:00)
--- NOTE | 2021-06-16 11:36 | P.PN ---
Subjective Date of Service: 06/16/21 Primary Care Provider: Chris Chief Complaint: covid pneumonia NC still require highconc of O2. BS very high Review of Systems General: Weakness Respiratory: Cough, Shortness of Breath Physical Examination - Vital Signs Temperature: 97.5 F Blood Pressure: 144/72 Pulse: 90 Respirations: 26 Pulse Ox (%): 85 - Physical Exam General: Alert, In no apparent distress, Oriented x3, Cooperative Assessment & Plan - Problems (Diagnosis) (1) Pneumonia due to COVID-19 virus Current Visit: Yes Status: Acute Plan: NC very hypoxic/ Pt did not qualify for barcitinib/CXRY severe COVID penumonia NC/ Reduce steroid dose Change to BIPAP
[2021-06-16] MEDS: RIVAROXABAN 20 MG TABLET PO SCH (17:20)
[2021-06-16] MEDS: AMLODIPINE 10 MG TAB PO SCH (19:59)
[2021-06-16] MEDS ORDERED: INSULIN -REGULAR HUMAN 50 UNIT/0.5 ML ML SQ ONE (23:58)
[2021-06-17] MEDS: HYDRALAZINE HCL 20 MG/ML VIAL IV PRN (00:40)
[2021-06-17 05:17] LABS: Absolute Lymphocytes (CBC) 0.7 K/uL (0.7-4.9); Basophils % 0.2 % (0-1.3); Lymphocytes % 8.3 % (15.3-44.8); MPV 8.7 fL (7.6-11.3); RBC Red Blood Cell Count 4.98 M/uL (3.86-4.86)
[2021-06-17 05:35] LABS: ALT/SGPT 25 U/L (12-78); AST/SGOT 24 U/L (15-37); Albumin 2.5 g/dL (3.4-5.0); Alkaline Phosphatase 67 U/L (45-117); BUN Blood Urea Nitrogen 16 mg/dL (7-18); Bicarbonate 28 mmol/L (21-32); Bilirubin Total 0.6 mg/dL (0.2-1.0); Ferritin 372.2 ng/mL (8-388); Glucose Level 265 mg/dL (74-106); Potassium 3.8 mmol/L (3.5-5.1); Protein, Total 5.8 g/dL (6.4-8.2); Sodium Level 138 mmol/L (136-145)
--- NOTE | 2021-06-17 06:37 | P.PN ---
Subjective Date of Service: 06/17/21 Primary Care Provider: Chris Chief Complaint: covid pneumonia Subjective: Worsening (O2 requirement worsened, now on HFNC, but she states she doesn't feel any more short of breath. feels the same.) Review of Systems 10-point ROS is otherwise unremarkable Physical Examination - Vital Signs Temperature: 97.1 F Blood Pressure: 152/71 Pulse: 91 Respirations: 20 Pulse Ox (%): 92 - Studies Microbiology Data (last 24 hrs): 06/11/21 17:00 Blood - Blood Aerobic Blood Culture - Final No growth in 5 days. 06/11/21 17:00 Blood - Blood Anaerobic Blood Culture - Final No growth in 5 days. 06/11/21 17:15 Blood - Blood Aerobic Blood Culture - Final No growth in 5 days. 06/11/21 17:15 Blood - Blood Anaerobic Blood Culture - Final No growth in 5 days. Assessment & Plan Physician Review Additional Text: Physical exam GEN: Alert, oriented, NAD HEENT: Normal conjunctiva, sclera anicteric CV: Regular rate and rhythm, no edema Pulm: nonlabored on 15L HFNC ABD: Soft, nontender, nondistended Neuro: Normal speech, normal affect Problem list Acute hypoxemic respiratory failure secondary to COVID-19 pneumonia Hypertension Type 2 diabetes mellitus, insulin-dependent Morbid obesity Continue steroid, vitamin-D and zinc supplementation. Pulmonary input appreciated. Immune modulators per pulmonary. decreased steroids 06/16 Insulin sliding scale for glucose management. Titate Lantus insulin for hyperglycemia. further increased on 06/17 Blood pressure control-continue losartan and amlodipine. Hydralazine IV p.r.n. Monitor electrolytes s/p Regeneron prior to hospitalization Started stool softener 06/15 Dispo: anticipate dc home with O2 in ~4 days Time Spent Managing Pts Care (In Minutes): 35
[2021-06-17] MEDS ORDERED: POTASSIUM 25 MEQ EFFERV TAB PO ONE (07:19)
[2021-06-17] MEDS: VITAMIN D 1000 UNIT TAB PO SCH (07:32)
[2021-06-17] MEDS: THIAMINE HCL 100 MG TABLET PO SCH (07:32)
[2021-06-17] MEDS: LOSARTAN POTASSIUM 50 MG TABLET PO SCH (07:33)
[2021-06-17] MEDS: INSULIN GLARGINE 100 UNITS/ML SQ SCH ×2 (07:33→21:00)
[2021-06-17] MEDS: ASCORBIC ACID 500 MG TABLET PO SCH ×4 (07:33→21:07)
[2021-06-17] MEDS: FAMOTIDINE 20 MG TAB PO SCH ×2 (07:33→21:06)
[2021-06-17] MEDS: FUROSEMIDE 20 MG TABLET PO SCH (07:33)
[2021-06-17] MEDS: DOCUSATE NA 100 MG CAP PO SCH ×2 (07:33→21:00)
[2021-06-17] MEDS: INSULIN -REGULAR HUMAN 50 UNIT/0.5 ML ML SQ SCH ×4 (07:34→21:00)
[2021-06-17] MEDS ORDERED: KCL 20 MEQ/100 mL IVPB 20 MEQ/100 ML BAG IV SCH (09:00)
[2021-06-17] MEDS: RIVAROXABAN 20 MG TABLET PO SCH (16:23)
[2021-06-17] MEDS: AMLODIPINE 10 MG TAB PO SCH (21:07)
[2021-06-18 06:19] LABS: Absolute Lymphocytes (CBC) 1.9 K/uL (0.7-4.9); Basophils % 0.3 % (0-1.3); Hematocrit 39.3 % (36.0-45.0); Lymphocytes % 21.9 % (15.3-44.8); MPV 8.6 fL (7.6-11.3); RBC Red Blood Cell Count 4.77 M/uL (3.86-4.86)
--- NOTE | 2021-06-18 06:24 | P.PN ---
Subjective Date of Service: 06/18/21 Patient is alert and oriented and without complaint. She continues on oxygen high flow nasal cannula at 45%. O2 sat between 93 and 95%. She states that she feels much improved and other than feeling short of breath when she gets up to move about the room she feels like she is doing much better. Her kwswa-ke-ivry glucose this morning was 101. Her potassium was a little bit low at 3.4. Both her CRP at 9.90 and her ferritin at 335 are improved over yesterday's readings. She looks forward to continued improvement going home as soon as possible. <Ramon Jain - Last Filed: 06/18/21 10:49> Date of Service: 06/18/21 Primary Care Provider: Chris Chief Complaint: covid pneumonia <Brent Garnica - Last Filed: 06/18/21 16:55> Physical Examination - Vital Signs Temperature: 97.3 F Blood Pressure: 135/75 Pulse: 81 Respirations: 19 Pulse Ox (%): 93 <Brent Garnica - Last Filed: 06/18/21 16:55> Assessment & Plan Physician Review Additional Text: Physical exam GEN: Alert, oriented, NAD HEENT: Normal conjunctiva, sclera anicteric CV: Regular rate and rhythm, no edema Pulm: nonlabored on 14L HFNC ABD: Soft, nontender, nondistended Neuro: Normal speech, normal affect Problem list Acute hypoxemic respiratory failure secondary to COVID-19 pneumonia Hypertension Type 2 diabetes mellitus, insulin-dependent Morbid obesity Continue steroid, vitamin-D and zinc supplementation. Pulmonary input appreciated. Immune modulators per pulmonary. decreased steroids 06/16 Insulin sliding scale for glucose management. Titate Lantus insulin for hyperglycemia. further increased on 06/17 Blood pressure control-continue losartan and amlodipine. Hydralazine IV p.r.n. Monitor electrolytes s/p Regeneron prior to hospitalization Started stool softener 06/15 Dispo: anticipate dc home with O2 in ~2 days Time Spent Managing Pts Care (In Minutes): 35 <Brent Garnica - Last Filed: 06/18/21 16:55>
[2021-06-18 06:38] LABS: ALT/SGPT 27 U/L (12-78); AST/SGOT 26 U/L (15-37); Albumin 2.4 g/dL (3.4-5.0); Alkaline Phosphatase 59 U/L (45-117); BUN Blood Urea Nitrogen 14 mg/dL (7-18); Bicarbonate 31 mmol/L (21-32); Bilirubin Total 0.4 mg/dL (0.2-1.0); Glucose Level 138 mg/dL (74-106); Potassium 3.4 mmol/L (3.5-5.1); Protein, Total 5.6 g/dL (6.4-8.2); Sodium Level 141 mmol/L (136-145)
[2021-06-18] MEDS: INSULIN -REGULAR HUMAN 50 UNIT/0.5 ML ML SQ SCH ×4 (07:30→21:10)
[2021-06-18] MEDS: DOCUSATE NA 100 MG CAP PO SCH ×2 (09:00→21:09)
[2021-06-18] MEDS: METHYLPREDNISOLONE 40 MG INJ IV SCH (09:00)
[2021-06-18] MEDS: FAMOTIDINE 20 MG TAB PO SCH ×2 (09:00→21:09)
[2021-06-18] MEDS: FUROSEMIDE 20 MG TABLET PO SCH (09:00)
[2021-06-18] MEDS: VITAMIN D 1000 UNIT TAB PO SCH (09:00)
[2021-06-18] MEDS: INSULIN GLARGINE 100 UNITS/ML SQ SCH ×2 (09:00→18:23)
[2021-06-18] MEDS: ASCORBIC ACID 500 MG TABLET PO SCH ×2 (09:00→13:00)
[2021-06-18] MEDS: LOSARTAN POTASSIUM 50 MG TABLET PO SCH (09:00)
[2021-06-18] MEDS: THIAMINE HCL 100 MG TABLET PO SCH (09:00)
[2021-06-18] MEDS: RIVAROXABAN 20 MG TABLET PO SCH (09:09)
--- NOTE | 2021-06-18 13:39 | P.PN ---
Subjective Date of Service: 06/18/21 Primary Care Provider: Chris Chief Complaint: covid pneumonia Improving, On 5 l NC O2 , Review of Systems General: Weakness Respiratory: Shortness of Breath Physical Examination - Vital Signs Temperature: 96.7 F Blood Pressure: 135/75 Pulse: 87 Respirations: 18 Pulse Ox (%): 95 - Physical Exam General: Alert, In no apparent distress, Oriented x3, Cooperative Assessment & Plan - Problems (Diagnosis) (1) Pneumonia due to COVID-19 virus Current Visit: Yes Status: Acute Plan: Much better feeling better poss DC 1-2 days O2 ordered/ chagne to PO decadron
[2021-06-18] MEDS: AMLODIPINE 10 MG TAB PO SCH (21:09)
[2021-06-18] MEDS: dexAMETHasone 4 MG TAB PO SCH (21:09)
[2021-06-19 06:03] LABS: Absolute Lymphocytes (CBC) 0.9 K/uL (0.7-4.9); Basophils % 0.7 % (0-1.3); Lymphocytes % 8.6 % (15.3-44.8); MPV 8.7 fL (7.6-11.3); RBC Red Blood Cell Count 4.72 M/uL (3.86-4.86)
[2021-06-19 06:30] LABS: ALT/SGPT 29 U/L (12-78); AST/SGOT 17 U/L (15-37); Albumin 2.4 g/dL (3.4-5.0); Alkaline Phosphatase 59 U/L (45-117); BUN Blood Urea Nitrogen 14 mg/dL (7-18); Bicarbonate 31 mmol/L (21-32); Bilirubin Total 0.4 mg/dL (0.2-1.0); Ferritin 330.3 ng/mL (8-388); Glucose Level 170 mg/dL (74-106); Protein, Total 5.5 g/dL (6.4-8.2); Sodium Level 140 mmol/L (136-145)
[2021-06-19] MEDS: FAMOTIDINE 20 MG TAB PO SCH ×2 (09:03→20:18)
[2021-06-19] MEDS: LOSARTAN POTASSIUM 50 MG TABLET PO SCH (09:04)
[2021-06-19] MEDS: VITAMIN D 1000 UNIT TAB PO SCH (09:04)
[2021-06-19] MEDS: DOCUSATE NA 100 MG CAP PO SCH ×2 (09:04→20:18)
[2021-06-19] MEDS: dexAMETHasone 4 MG TAB PO SCH ×2 (09:04→20:20)
[2021-06-19] MEDS: INSULIN GLARGINE 100 UNITS/ML SQ SCH ×2 (09:04→20:20)
[2021-06-19] MEDS: INSULIN -REGULAR HUMAN 50 UNIT/0.5 ML ML SQ SCH ×4 (09:05→20:19)
[2021-06-19] MEDS: FUROSEMIDE 20 MG TABLET PO SCH (09:05)
--- NOTE | 2021-06-19 15:39 | P.PN ---
Subjective Date of Service: 06/19/21 Primary Care Provider: Chris Chief Complaint: covid pneumonia Subjective: Improving (Continues to improve, breathing more comfortably, ambulating several feet in the room, urinating/stooling. No new issues per patient. Patient states she had bilateral cramping in her lower calves, unsure if due to debility or culture.) Review of Systems 10-point ROS is otherwise unremarkable Physical Examination - Vital Signs Temperature: 96.8 F Blood Pressure: 153/77 Pulse: 80 Respirations: 18 Pulse Ox (%): 96 Assessment & Plan Physician Review Additional Text: Physical exam GEN: Alert, oriented, NAD, super morbid obesity HEENT: Normal conjunctiva, sclera anicteric CV: Regular rate and rhythm, no edema Pulm: nonlabored on 4L NC ABD: Soft, nontender, nondistended Neuro: Normal speech, normal affect Problem list Acute hypoxemic respiratory failure secondary to COVID-19 pneumonia Hypertension Type 2 diabetes mellitus, insulin-dependent Morbid obesity Continue steroid, vitamin-D and zinc supplementation. Insulin sliding scale for glucose management. Titate Lantus insulin for hyperglycemia. further increased on 06/17 Blood pressure control-continue losartan and amlodipine. Hydralazine IV p.r.n. Monitor electrolytes s/p Regeneron prior to hospitalization Started stool softener 06/15 Continues to improve, possible discharge home tomorrow with home oxygen Will need prescription for Lantus Dispo: anticipate dc home with O2 tomorrow Time Spent Managing Pts Care (In Minutes): 35
--- NOTE | 2021-06-19 15:51 | RAD REPORT ---
EXAM DESCRIPTION: US - Extrem Venous W Compress Juliocesar - 06/19/2021 3:04 pm CLINICAL HISTORY: Swelling COMPARISON: None. TECHNIQUE: Real-time sonographic evaluation of the bilateral lower extremity deep venous systems was performed. FINDINGS: Normal compressibility, flow augmentation, phasic flow and spontaneous flow is identified in both the left and right lower extremity deep venous systems. No intraluminal filling defects seen. IMPRESSION: No DVT in either lower extremity.
[2021-06-19] MEDS: RIVAROXABAN 20 MG TABLET PO SCH (17:08)
[2021-06-19] MEDS: AMLODIPINE 10 MG TAB PO SCH (20:18)
[2021-06-20 04:48] VITALS: BP 143/75; TEMP 97
[2021-06-20] MEDS: INSULIN -REGULAR HUMAN 50 UNIT/0.5 ML ML SQ SCH (07:30)
[2021-06-20] MEDS ORDERED: METFORMIN HCL 500 MG TAB PO SCH (08:00)
[2021-06-20 08:42] VITALS: O2SAT 94
[2021-06-20] MEDS: VITAMIN D 1000 UNIT TAB PO SCH (09:57)
[2021-06-20] MEDS: INSULIN GLARGINE 100 UNITS/ML SQ SCH (09:57)
[2021-06-20] MEDS: LOSARTAN POTASSIUM 50 MG TABLET PO SCH (09:57)
[2021-06-20] MEDS: DOCUSATE NA 100 MG CAP PO SCH (09:58)
[2021-06-20] MEDS: dexAMETHasone 4 MG TAB PO SCH (09:58)
[2021-06-20] MEDS: FAMOTIDINE 20 MG TAB PO SCH (09:58)
[2021-06-20] MEDS: FUROSEMIDE 20 MG TABLET PO SCH (09:58)
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
== END 2021-06-20 10:30 | disposition home or self-care (01) | DRG 177 ==
LOC: ER 15:54 → ERHOLD 19:57 → 4TH 23:23
PROVIDERS: ADMIT Internal Medicine; ATTEND Hospitalist
DX: U07.1 COVID-19 (principal); J12.82 Pneumonia due to coronavirus disease 2019; J96.01 Acute respiratory failure with hypoxia; Z68.41 Body mass index [BMI] 40.0-44.9, adult; E11.65 Type 2 diabetes mellitus with hyperglycemia; I10 Essential (primary) hypertension; J45.909 Unspecified asthma, uncomplicated; E66.01 Morbid (severe) obesity due to excess calories; T38.0X5A Adverse effect of glucocorticoids and synthetic analogues, initial encounter
CPT/HCPCS: 36415; 71045; 71275; 80048; 80053; 80061; 80076; 81003; 81025; 82728; 82947; 83036; 83605; 83690; 83735; 84100; 84132; 84145; 84439; 84443; 84484; 85025; 85379; 85610; 85730; 86140; 87040; 87804; 93005; 93970; 94002; 94003; 94760; 96374; 96375; 99285; J0360; J1815; J2920; J2930; J7030; J8540; Q9967